=== PATIENT | female | born 1995 | race Hispanic/Latino ===

== ENCOUNTER 2019-01-14 11:35 | Inpatient (IN) | payer OTHER, SELFPAY ==
--- NOTE | 2019-01-14 12:37 | PDOC.FPROB ---
FMR OB H&P: HPI - History of Present Illness Chief Complaint: Labor Indentification: at 39.4 wks History of Present Illness: 23 year old at 39.4 wks presents from [facility] in active labor. Patient endorses some abdominal cramping. Patient denies vaginal bleeding, vaginal discharge, LoF. Endorses good movement. Primary Care Physician: [facility] Carmen Ny FMR OB H&P: Current - Care : 2 Para: 1 Gestational age: 39.4 wks Due date: 01/17/2019 Dating Criteria: LMP/17.3 wk sono - OB Labs Blood type: B RH: positive Antibody Screen: negative HIV: negative RPR: negative HepBsAg: negative Rubella: immune Gonorrhea: negative Chlamydia: negative 1 hour gtt: 124 GBS: negative FMR OB H&P: History - Past Medical History PMH: Denies significant PMH to include asthma - OB History OB History: x1 - DISPATCH[employer] History DISP[employer] History: Denies history of abnormal pap smears or STD's - Surgical History Sx History: Denies - Social History Social History: Denies alcohol, tobacco, or drug use - Family History Family History: Denies significant FH FMR OB H&P: Medications - Current Home Medications: Medication Instructions Recorded Confirmed Type Pnv No.95/Ferrous Fum/Folic AC 1 each PO DAILY 01/14/19 01/14/19 History [ [place]] Allergies/Adverse Reactions: Allergies Allergy/AdvReac Type Severity Reaction Status Date / Time No Known Allergies Allergy Verified 01/14/19 12:39 FMR OB H&P: ROS - Review of Systems General: denies: fever/chills, weight/appetite/sleep changes Eyes: denies: vision changes, double vision ENT: denies: nasal congestion, rhinorrhea, sore throat Cardiovascular: denies: chest pain, palpitation, edema Gastrointestinal: reports: cramping. denies: abdominal pain, indigestion, nausea, vomiting, diarrhea Genitourinary (Female): denies: incontinence, dysuria, vaginal discharge, vaginal pain, vaginal bleeding, contractions Musculoskeletal: denies: pain, stiffness Neurologic: denies: numbness, syncope Integumentary: denies: itching, lesions Psychological: denies: depression, anxiety FMR OB H&P: Vital Signs - Maternal Vital signs: BP 123/74 Pulse 81 Pulse ox 100% RA Afebrile - Heart Tones Baseline: 130 Variability: moderate Acceleration: present Deceleration: absent Category: category 1 [place] contractions every: q3-4 min FMR OB H&P: Physical Exam - Physical Exam General: NAD, awake, alert and oriented HEENT: MMM, grossly normal vision, grossly normal hearing Heart: RRR, pulses present General: no respiratory distress, no wheezing Abdomen: soft, gravid, non-tender Musculoskeletal: pulses present, FROM in all four extremities Neurological: no tremor, no focal deficit Skin: no rash, capillary refill <2 seconds Lymphatic: no unusual bruising or bleeding, no purpura Psychiatric: intact recent and remote memory, good judgement and insight FMR OB H&P: A/P - Problem List (1) Term Current Visit: Yes Status: Acute Code(s): Z34.90 - ENCNTR FOR SUPRVSN OF NORMAL , UNSP, UNSP TRIMESTER (2) Active labor Current Visit: Yes Status: Acute Code(s): [id number] - Disposition: 23 year old at 39.4 wks by LMP/17.3 wk sono 1. Term in active labor - Will plan for AROM and pitocin augmentation - Cervical exam 5-/-2 at 12:30 AM - Recheck in 2 hours - GBS negative - Category I strip Dispo: Admit to labor and delivery for active labor management. Discussion: Date/Time: 01/14/19 2753 This H&P was discussed with Dr. Hagen who agrees with the above documentation and plan. Signature: Opal Ny, PGY-3
[2019-01-14 12:39] VITALS: BMI 28.9
[2019-01-14] MEDS ORDERED: hydrALAZINE 20 MG/ML VIAL SLOW IVP PRN ×2 (12:50→17:43)
[2019-01-14] MEDS ORDERED: Acetaminophen 500 MG TAB PO PRN (12:50)
[2019-01-14] MEDS ORDERED: NS / Oxytocin 40 units/1000ml 1,000 ML IV PRN (12:50)
[2019-01-14] MEDS ORDERED: Promethazine HCl 25 MG/ML VIAL IM PRN (12:50)
[2019-01-14] MEDS ORDERED: Ibuprofen 800 MG TAB PO PRN (12:50)
[2019-01-14] MEDS ORDERED: Butorphanol Tartrate 1 MG/ML VIAL SLOW IVP PRN (12:50)
[2019-01-14] MEDS ORDERED: Ondansetron PF 4 MG/2 ML Vial IVP PRN ×2 (12:50→17:43)
[2019-01-14] MEDS ORDERED: Lidocaine 1% (PF) 30 ML VIAL SC PRN (12:50)
[2019-01-14] MEDS ORDERED: Lactated Ringer's 1,000 ML IV SCH (13:00)
[2019-01-14] MEDS ORDERED: NS w/ Oxytocin 10 units 500 ML IV SCH (13:00)
[2019-01-14 13:23] LABS: Hemoglobin 14.4 g/dL (12.0-16.0); Mean Corpuscular Hemoglobin 29.9 pg (27.0-31.0); Mean Platelet Volume 7.7 fL (7.4-10.4); Platelet Count 175 thou/uL (130-400); RBC Distribution Width 13.6 % (11.5-14.5); White Blood Cell (WBC) Count 9.2 thou/uL (4.8-10.8)
--- NOTE | 2019-01-14 13:39 | PDOC.LDPN ---
Labor & Delivery Progress Note - Subjective Subjective: comfortable - Objective Vital signs reviewed and normal: yes General: NAD Uterine fundus: non tender SVE: 13:30 Dilation: 6 Effacement: 50% Station: -1 FHT: category 1, variability present [place] contractions every: q3-4 min AROM: clear fluid - Assessment (1) Term Code(s): Z34.90 - ENCNTR FOR SUPRVSN OF NORMAL , UNSP, UNSP TRIMESTER Current Visit: Yes Status: Acute (2) Active labor Code(s): [id number] - Current Visit: Yes Status: Acute Plan: continue plan of care, labor augmentation, pitocin for augmentation
[2019-01-14 14:08] LABS: Syphilis Antibody Nonreactive (Nonreactive); Syphilis Antibody Index 0.04 S/CO (<1.00 Non-Reactive)
[2019-01-14 14:09] LABS: HBSAg Index 0.19 S/CO (0-0.99); Hep B Surf Ag Non-Reactive S/CO (NonReactive)
[2019-01-14] MEDS ORDERED: NS / Oxytocin 40 units/1000ml 1,000 ML IV SCH (17:43)
[2019-01-14] MEDS ORDERED: diphenhydrAMINE 25 MG CAP PO PRN (17:43)
[2019-01-14] MEDS ORDERED: HYDROcodone/Acetaminophen 5/325 mg Tablet PO PRN (17:43)
[2019-01-14] MEDS ORDERED: Preparation H Ointment 28 GM TUBE PR PRN (17:43)
[2019-01-14] MEDS ORDERED: Bisacodyl 10 MG SUPP PR PRN (17:43)
[2019-01-14] MEDS ORDERED: Lanolin Ointment 7 GM TUBE TOP PRN (17:43)
[2019-01-14] MEDS ORDERED: Milk Of Magnesia 30 ML UDCUP PO PRN (17:43)
[2019-01-14] MEDS ORDERED: Benzocaine-Menthol 82.5 ML CAN TOP PRN (17:43)
[2019-01-14] MEDS: Docusate Calcium (SURFAK) 240 MG CAP PO SCH (22:48)
[2019-01-14] MEDS: Ibuprofen 800 MG TAB PO SCH (22:48)
[2019-01-15] MEDS: Ibuprofen 800 MG TAB PO SCH ×2 (05:49→14:11)
[2019-01-15] MEDS: Ferrous Sulfate 325 MG TAB PO SCH ×2 (08:26→15:37)
[2019-01-15] MEDS: Docusate Calcium (SURFAK) 240 MG CAP PO SCH (08:29)
[2019-01-15] MEDS ORDERED: Prenatal Vitamin 1 TAB PO SCH (09:00)
[2019-01-15] MEDS ORDERED: Adacel (T-DAP) 0.5 ML SYRINGE IM ONE (09:00)
--- NOTE | 2019-01-15 10:24 | PDOC.OPDEL ---
OB Operative/Delivery Note Delivery Dr/Surgeon: Pope Ny Pre-Delivery Diagnosis: active labor Procedure/Post Delivery Dx: spontaneous vaginal delivery Weeks gestation: 39 (39.4 wks) Anesthesia: local - Findings A Sex: male - 1 min: 8 - 5 min: 9 - Additional Findings/Plan Placenta delivered: spontaneous Repaired Obstetrical Laceration: other (Periurethral and 1st degree) Compilations/Other Findings: Delivering Physician: Yanely Attending: Procedure: Spontaneous Vaginal Delivery Anesthesia: Local for Repair EBL: ___ ml Pre-op Diagnosis: 1. Term intrauterine in labor Post-op Diagnosis: 1. Term intrauterine , delivered 2. 1st degree perineal laceration s/p repair 3. Periurethral laceration s/p repair Indications: A 23 y/o female presents in active labor Delivery Note: This is 23yo F @ 39.4 wks who delivered a viable M at 16:16 at 830. Following an uneventful antepartum course, a vigorous M was delivered over an intact perineum in the occipitoanterior position. Anterior Shoulder and then remainder of the body delivered. No nuchal cord. The head was held down and mouth and nares were bulb suctioned. Cord clamped and cut and cord blood collected. Placenta delivered intact with a 3 vessel cord noted. Fundal massage was performed and the fundus was firm. The cervix and vagina were inspected and a 1st degree perineal and periurethral laceration were noted and repaired with 3-0 Vicryl in the usual fashion with good approximation and hemostasis after a local anesthetic w/ 1% lidocaine was injected at the site. A leavitt catheter was placed prior to repair of periurethral laceration. went to nursery in good condition for routine care. Apgars were 8/9 at 1 & 5 minutes, respectively. Patient tolerated delivery well and went to after routine recovery/care. Post delivery plan: routine recovery Addendum - Attending - Attending Attestation Date/Time: 01/17/19 3199 I, Angel Hagen MD, personally evaluated the patient and discussed indications for the procedure described by Dr. Ny. I directly supervised and participated in the Spontaneous Vaginal Delivery and I agree with the description of procedure as documented above without any addition or exceptions.
--- NOTE | 2019-01-15 10:27 | PDOC.PP ---
Post Progress Note Post Day #: 1 Subjective: Patient doing well. No significant overnight events. Patient tolerating PO. She still has leavitt in place from periurethral laceration. She denies any vaginal pain. PO intake tolerated: yes Flatus: yes Ambulation: yes Vital Signs (12 hours) Temp Pulse Resp BP Pulse Ox 01/15/19 08:59 98.6 F 73 14 128/60 99 01/15/19 05:45 98.3 F 70 16 104/58 L 01/15/19 00:10 98.7 F 79 16 110/59 L Weight Weight 78.925 kg - Physical Examination General: NAD Cardiovascular: RRR Respiratory: non-labored breathing Abdominal: + bowel sounds, lochia (minimal), no distention, appropriately TTP Fundus firm & at: at umbilicus Skin: no rash Neurological: no gross focal deficits Psychiatric: A&Ox3, normal affect Result Diagrams: 01/14/19 13:12 Additional Labs: Post Labs Blood Type B POSITIVE 01/14/19 13:44 Hep Bs Antigen Non-Reactive S/CO (NonReactive) 01/14/19 13:12 (1) Term delivered Code(s): O80 - ENCOUNTER FOR FULL-TERM UNCOMPLICATED DELIVERY Status: Acute - Assessment/Plan 23 year old at 39.4 wks by LMP/17.3 wk sono delivered TAGA M on via . Apgars 8/9. 1. Routine PP care - PP day #1 - Ambulate - Remove leavitt - GBS neg - Rubella immune, Rh neg - Bottle feeding 2. 1st degree laceration - s/p repair - minimal lochia 3. Periurethral laceration - s/p repair - remove leavitt today Dispo: Plan for d/c home tomorrow. Addendum - Attending - Attending Attestation Date/Time: 01/16/19 [id number] I personally evaluated the patient and discussed the management with Dr. Ny on 01/15. I agree with the History, Examination, Assessment and Plan documented above with any addition or exceptions noted below. Doing wonderfully. Plan for d/c 01/15 or 01/16 pending patient preference.
[2019-01-15 17:31] VITALS: BP 114/75; TEMP 98.2
== END 2019-01-15 20:05 | disposition home or self-care (01) | DRG 807 ==
LOC: L&D 11:35 → 3SW 22:11
PROVIDERS: ADMIT Family Medicine; ATTEND Family Medicine
PROC: 10E0XZZ Delivery of Products of Conception, External Approach (ICD-10-PCS; principal; 2019-01-14)
PROC: 0HQ9XZZ Repair Perineum Skin, External Approach (ICD-10-PCS; 2019-01-14)
PROC: 10907ZC Drainage of Amniotic Fluid, Therapeutic from Products of Conception, Via Natural or Artificial Opening (ICD-10-PCS; 2019-01-14)
DX: O70.0 First degree perineal laceration during delivery (principal); Z37.0 Single live birth; Z3A.39 39 weeks gestation of pregnancy
CPT/HCPCS: 36415; 51702; 85027; 86780; 86850; 86900; 86901; 87340; J0595; J2001; J2590